=== PATIENT | male | born 1980 | race Two or more races ===

== ENCOUNTER → 2021-03-26 | Outpatient (CLI) | payer OTHER ==
--- NOTE | 2021-03-26 17:28 | RAD ---
Chest, PA and Lateral: Technique: PA and lateral views of the chest were obtained. History: Shortness of breath. Comparison: None. Findings: Low lung volumes and technique accentuates heart size and pulmonary vascularity. Minimal prominent b ilateral interstitial lung markings could be mild congestive changes or interstitial infiltrates.. . . Impression: Minimal prominent bilateral interstitial lung markings could be mild congestive changes or interstiti al infiltrates.. Electronically signed by: Bowen Cameron MD (03/26/2021 5:25 PM) [id number]
== END ==
LOC: RAD 16:41
PROVIDERS: ATTEND Physician Assistant
DX: U07.1 COVID-19 (principal)
CPT/HCPCS: 71046